=== PATIENT | female | born 2000 | race African-American/Black ===

== ENCOUNTER 2022-05-24 12:35 | Emergency (ER) | payer SELFPAY ==
[2022-05-24 13:17] VITALS: BP 100/53; PULSE 58; RESP 18; TEMP 35.9; O2SAT 99; BMI 33.1
--- NOTE | 2022-05-24 14:10 | ED.HA ---
HPI - Headache General Chief Complaint: Headache/Migraine Stated Complaint: Head pressure/nausea Time Seen by Provider: 05/24/22 13:23 History of Present Illness HPI Narrative: This 22-year-old female comes in reporting headache for the past 3 days. She has some nausea and dry heaves. She reports some sensitivity to light. She states that she does not typically get headaches. She feels this headache in the front part of her head and also in the occipital region. She does not report any neck pain or back pain. She has not had any fevers or other symptoms of infection. Related Data Home Medications Medication Instructions Recorded Confirmed No Known Home Medications 05/24/22 05/24/22 Allergies Allergy/AdvReac Type Severity Reaction Status Date / Time cat dander Allergy Mild Verified 05/24/22 13:25 pollen extracts Allergy Mild nose itchy Verified 05/24/22 13:25 Review of Systems Status of ROS: Reports: 10 or more systems reviewed and unremarkable except as noted in History and below Narrative: Constitutional: No fevers, no weight gain or loss. Eyes: No discharge. No vision changes. Light sensitivity. HENT: No congestion, no sore throat, no ear pain. Cardiovascular: No chest pain, no palpitations. Respiratory: No shortness of breath, no wheezes, no cough. Gastrointestinal: No abdominal pain, no diarrhea. Nausea with dry heaves. Genitourinary: No dysuria, no hematuria. Musculoskeletal: Normal range of motion. Skin: No rashes, no pruritis. Neurological: No dizziness, weakness, sensory change, speech change. Endo/Heme/Allergies: No bruising or bleeding. No polydipsia. Pysch: no suicidality, no anxiety, no insomnia. All other systems reviewed and are negative. PFSH PFSH Social History Smoking Status: Current some day smoker Do you use any of these nicotine containing products: None Second hand tobacco smoke exposure: No How often do you have a drink containing alcohol: monthly or less How many standard drinks containing alcohol do you have on a typical day: 1 or 2 How often do you have six or more drinks on one occasion: Never AUDIT-C Alcohol total score: 1 Non-prescribed substance use: marijuana (any form) service: No Exam Narrative: Exam Narrative: Constitutional: Well-developed, well-nourished, no acute distress. HEENT: Normocephalic, atraumatic. Neck: Normal range of motion. Nontender. Supple. Heart: Regular. No murmurs. Normal rate. Intact distal pulses. Lungs: Clear to auscultation. No chest discomfort. No wheezes, rhonchi, or rales. Abdomen: Normal bowel sounds. Nontender. No rebound tenderness. Genitalia: Deferred. Back: No midline tenderness. Normal range of motion. Extremities: Normal range of motion. No injury. Skin: Intact. No rash. Warm. No erythema or pallor. Neurologic: No altered sensation. No weakness. Alert and oriented. Psychiatric: No suicidality. No anxiety or depression. No insomnia. Nursing notes and vitals signs are reviewed. Const: Vital Signs, click to edit/add: Vital Signs - 24 hr 05/24/22 13:17 05/24/22 14:33 Temperature 96.7 F L Pulse Rate [Right Pulse Oximeter] 58 L 61 Respiratory Rate 18 18 Blood Pressure [Ri ght Upper Arm] 100/53 L 112/71 Pulse Oximetry 99 98 Oxygen Delivery Me thod Room Air Room Air Course Vital Signs Vital signs: Initial Vital Signs Temperature 96.7 F L 05/24/22 13:17 Temperature Source Temporal Artery Scan 05/24/22 13:17 Pulse Rate 58 L 05/24/22 13:17 Respiratory Rate 18 05/24/22 13:17 Blood Pressure 100/53 L 05/24/22 13:17 Blood Pressure Mean 68 05/24/22 13:17 Blood Pressure Position Sitting 05/24/22 13:17 Pulse Oximetry 99 05/24/22 13:17 Oxygen Delivery Method 05/24/22 13:17 Vital Signs Temperature 96.7 F L 05/24/22 13:17 Pulse Rate 58 L 05/24/22 13:17 Respiratory Rate 18 05/24/22 13:17 Blood Pressure 100/53 L 05/24/22 13:17 Pulse Oximetry 99 05/24/22 13:17 Oxygen Delivery Method 05/24/22 13:17 Temperature 96.7 F L 05/24/22 13:17 Pulse Rate 61 05/24/22 14:33 Respiratory Rate 18 05/24/22 14:33 Blood Pressure 112/71 05/24/22 14:33 Pulse Oximetry 98 05/24/22 14:33 Oxygen Delivery Method 12/21/22 14:33 MDM - Headache MDM Narrative Medical decision making narrative: This patient comes in with symptoms related to headache. She agreed to have an IV placed where she received Toradol 30 mg, Zofran 4 mg, and Benadryl 50 mg. After about 30 minutes I checked with her and she stated that her symptoms were worse. The nurse however noted that she was frequently on her phone and did not appear to be have 9 or 10/10 pain. I then offered to treat further with ketamine and she agreed to this plan. This was ordered and while it was being processed the patient got up to the bathroom and then left. She apparently removed her IV. Discharge Plan Discharge Clinical Impression: Headache Patient Disposition: Home, Self-Care Prescriptions: No Action No Known Home Medications Follow Up/Referrals: Provider,Not a Local [Primary Care Provider] - Stand Alone Forms: [employer] Info Instructions
[2022-05-24] MEDS: KETOROLAC 30 MG/ML inj IVP (14:27)
[2022-05-24] MEDS: ONDANSETRON 2 MG/ML inj 4 MG IVP (14:29)
[2022-05-24] MEDS: diphenhydrAMINE 50 MG/ML inj IVP (14:30)
[2022-05-24 14:33] VITALS: BP 112/71; PULSE 61; RESP 18; O2SAT 98
--- NOTE | 2022-05-24 15:24 | ED.NURSE ---
walked out of ed. dr patel informed. has blood on a tissue in the garbage, evidence that iv was self removed. has no phone listed. had a merchandise pickup/receiving associate truck waiting for her.
== END 2022-05-24 15:20 | disposition home or self-care (01) ==
PROVIDERS: Emergency Provider Emergency Medicine Emergency Medical Services
DX: R51.9 Headache, unspecified (principal)
CPT/HCPCS: 96374; 96375; 99283; 99284; J1200; J1885; J2405

== ENCOUNTER 2023-05-25 14:15 | Emergency (ER) | payer BC, SELFPAY ==
[2023-05-25 14:30] VITALS: BP 117/80; PULSE 56; RESP 20; TEMP 36.4; O2SAT 97; BMI 33.5
--- NOTE | 2023-05-25 15:04 | ED_ITS ---
HPI - Chest Pain General Chief Complaint: Chest Pain Stated Complaint: Chest pain, short of breath Time Seen by Provider: 05/25/23 14:45 History of Present Illness HPI narrative: This 23-year-old female comes in reporting severe chest pain that began last night after vaping. She does not report any cough. She arrives with normal vital signs but is very anxious. She denies having any nausea, vomiting, shortness of breath, diaphoresis, or exercise intolerance. She does state that the pain is worse when taking a deep breath and when laying down. Related Data Home Medications Medication Instructions Recorded Confirmed albuterol 90 mcg/actuation aerosol mcg inhalation 05/25/23 inhaler Previous Rx's Medication Instructions Recorded ketorolac 10 mg tablet 10 mg PO Q8H 5 days #15 tabs 05/25/23 Allergies Allergy/AdvReac Type Severity Reaction Status Date / Time cat dander Allergy Mild Verified 05/25/23 14:35 pollen extracts Allergy Mild nose itchy Verified 05/25/23 14:35 Review of Systems Status of ROS Reports: 10 or more systems reviewed and unremarkable except as noted in History and below Narrative Constitutional: No fevers, no weight gain or loss. Eyes: No discharge. No vision changes. HENT: No congestion, no sore throat, no ear pain. Cardiovascular: No palpitations. Respiratory: No shortness of breath, no wheezes, no cough. Gastrointestinal: No abdominal pain, no vomiting, no diarrhea. Genitourinary: No dysuria, no hematuria. Musculoskeletal: Normal range of motion. Skin: No rashes, no pruritis. Neurological: No dizziness, weakness, sensory change, speech change. Endo/Heme/Allergies: No bruising or bleeding. No polydipsia. Pysch: no suicidality. All other systems reviewed and are negative. PFSH PFS Social History Smoking Status: Current some day smoker Do you use any of these nicotine containing products: None Second hand tobacco smoke exposure: No How often do you have a drink containing alcohol: monthly or less How many standard drinks containing alcohol do you have on a typical day: 1 or 2 How often do you have six or more drinks on one occasion: Never AUDIT-C Alcohol total score: 1 Non-prescribed substance use: marijuana (any form) service: No Exam Narrative Exam Narrative: Constitutional: Well-developed, well-nourished, no acute distress. HEENT: Normocephalic, atraumatic. Neck: Normal range of motion. Nontender. Supple. Heart: Regular. No murmurs. Normal rate. Intact distal pulses. Lungs: Clear to auscultation. No wheezes, rhonchi, or rales. Chest: Diffuse pain across the anterior chest. Pain is distinctly reproducible when taking a deep breath and when laying back. Abdomen: Normal bowel sounds. Nontender. No rebound tenderness. Genitalia: Deferred. Back: No midline tenderness. Normal range of motion. Extremities: Normal range of motion. No injury. Skin: Intact. No rash. Warm. No erythema or pallor. Neurologic: No altered sensation. No weakness. Alert and oriented. Psychiatric: No suicidality. No anxiety or depression. No insomnia. Nursing notes and vitals signs are reviewed. Const Vital Signs, click to edit/add: Vital Signs - 24 hr 05/25/23 14:30 Temperature 97.5 F L Pulse Rate [Right Pulse Oximeter] 56 L Respiratory Rate 20 Blood Pressure [Left Upper Arm] 117/80 Pulse Oximetry 97 Oxygen Delivery Method Room Air Course Vital Signs Vital signs: Initial Vital Signs Temperature 97.5 F L 05/25/23 14:30 Temperature Source Temporal Artery Scan 05/25/23 14:30 Pulse Rate 56 L 05/25/23 14:30 Respiratory Rate 20 05/25/23 14:30 Blood Pressure 117/80 05/25/23 14:30 Blood Pressure Mean 92 05/25/23 14:30 Blood Pressure Position Sitting 05/25/23 14:30 Pulse Oximetry 97 05/25/23 14:30 Oxygen Delivery Method Room Air 05/25/23 14:30 Vital Signs Temperature 97.5 F L 05/25/23 14:30 Pulse Rate 56 L 05/25/23 14:30 Respiratory Rate 20 05/25/23 14:30 Blood Pressure 117/80 05/25/23 14:30 Pulse Oximetry 97 05/25/23 14:30 Oxygen Delivery Method Room Air 05/25/23 14:30 Temperature 97.5 F L 05/25/23 14:30 Pulse Rate 56 L 05/25/23 14:30 Respiratory Rate 20 05/25/23 14:30 Blood Pressure 117/80 05/25/23 14:30 Pulse Oximetry 97 05/25/23 14:30 Oxygen Delivery Method Room Air 05/25/23 14:30 Medications Administered Medications: Discontinued Medications Generic Name Dose Route Start Last Admin Trade Name Dickson PRN Reason Stop Dose Admin Ketorolac Tromethamine 30 mg 05/25/23 15:01 05/25/23 15:20 Ketorolac 30 Mg/Ml Inj IVP 05/25/23 15:02 30 mg ONCE ONE Administration Lorazepam 0.5 mg 05/25/23 15:01 05/25/23 15:20 Lorazepam 2 Mg/Ml Inj IV 05/25/23 15:02 0.5 mg ONCE ONE Administration MDM - Chest Pain MDM Narrative Medical decision making narrative: This patient comes in with chest pain and a fair amount of anxiety related to it. She reports pain in her central chest that is reproduced when palpating along the sternal border, when taking a deep breath, and when laying. An IV was established where she received Toradol 30 mg and Ativan 0.5 mg. This brought sufficient relief to her symptoms. EKG shows normal sinus rhythm without ST or T-wave abnormalities. Lab results also returned normal with normal troponin and D-dimer levels. This patient's pain is reproducible indicating chest wall pain. She did receive a prescription for Toradol and is encouraged to increase activity as tolerated. Lab Data Labs: Lab Results 05/25/23 05/25/23 Range/Units 15:00 15:02 WBC 9.67 (4.50-11.00) K/uL RBC 4.94 (4.00-5.20) m/uL Hgb 14.8 (12.0-16.0) gm/dL Hct 44.5 (33.0-51.0) % MCV 90 (80-100) fL MCH 30 (26-34) pg MCHC 33 (32-36) gm/dL RDW Coeff of Librado 12.5 (11.5-15.5) % Plt Count 332 (140-440) K/uL Neut % (Auto) 57.2 (42.0-72.0) % Lymph % (Auto) 34.0 (20-44) % [place] % (Auto) 7.0 (0.0-11.0) % Eos % (Auto) 0.9 (0.0-7.0) % Baso % (Auto) 0.3 (0.0-3.0) % Neut # (Auto) 5.52 (1.7-7.0) K/uL Lymph # (Auto) 3.29 H (0.90-2.90) K/uL [place] # (Auto) 0.70 (0.00-0.90) K/UL Eos # (Auto) 0.09 (0.00-0.50) K/uL Baso # (Auto) 0.03 (0.00-0.30) K/uL Abs Immat Gran (auto) 0.06 (0.00-0.30) K/uL Imm/Tot Granulo (auto) 0.6 % D-Dimer Quant (PE/DVT) 0.33 (0.00-0.50) ug/ml Sodium 140 (135-149) mmol/L Potassium 3.8 (3.6-5.1) mmol/L Chloride 105 (96-114) mmol/L Carbon Dioxide 24 (20-32) mmol/L Anion Gap 11 (7-15) mEq/L BUN 8 (5-24) mg/dL Creatinine 0.7 (0.5-1.5) mg/dL Estimated Creat Clear 108.86 Estimated GFR 125 ml/min Glucose 81 (60-115) mg/dL Calcium 9.9 (8.4-10.6) mg/dL POC Troponin I 0.00 L (0.01-0.04) ng/ml ECG Data Attestation: I personally reviewed and interpreted this ECG as follows: Interpretation: Sinus bradycardia, rate 51 beats per minute. There are no specific ST or T-wave abnormalities. Discharge Plan Discharge Clinical Impression: Acute chest wall pain Patient Disposition: Home, Self-Care Condition: Stable Additional Instructions: Take medication as needed and indicated. Increase activity as tolerated. Follow up with MD return if worsening. Prescriptions: New ketorolac 10 mg tablet 10 mg PO Q8H 5 Days Qty: 15 0RF No Action albuterol 90 mcg/actuation aerosol inhalation Follow Up/Referrals: Provider,Not a Local [Primary Care Provider] - Stand Alone Forms: [employer] Info Instructions
[2023-05-25] MEDS: LORazepam 2 MG/ML inj 0.5 MG IV (15:20)
[2023-05-25] MEDS: KETOROLAC 30 MG/ML inj IVP (15:20)
[2023-05-25 15:24] LABS: Basophils Absolute Auto 0.03 K/uL (0.00-0.30); Basophils Percent Auto 0.3 % (0.0-3.0); Eosinophils Absolute Auto 0.09 K/uL (0.00-0.50); Eosinophils Percent Auto 0.9 % (0.0-7.0); Hematocrit 44.5 % (33.0-51.0); Hemoglobin* 14.8 gm/dL (12.0-16.0); Immature Granulocytes Abs Auto 0.06 K/uL (0.00-0.30); Immature Granulocytes Pct Auto 0.6 %; Lymphocytes Absolute Auto 3.29 K/uL (0.90-2.90); Mean Corpuscular HGB Conc 33 gm/dL (32-36); Mean Corpuscular Hemoglobin 30 pg (26-34); Mean Corpuscular Volume 90 fL (80-100); Neutrophils Absolute Auto 5.52 K/uL (1.7-7.0); Neutrophils Percent Auto 57.2 % (42.0-72.0); Platelet Count* 332 K/uL (140-440); RDW Coefficient of Variation % 12.5 % (11.5-15.5); Red Blood Count 4.94 m/uL (4.00-5.20); White Blood Count* 9.67 K/uL (4.50-11.00)
[2023-05-25 15:38] LABS: Slide Review Reflex No
[2023-05-25 15:45] LABS: D Dimer Quantitative* 0.33 ug/ml (0.00-0.50)
[2023-05-25 15:46] LABS: Chloride* 105 mmol/L (96-114); Potassium* 3.8 mmol/L (3.6-5.1); Sodium* 140 mmol/L (135-149)
[2023-05-25 15:49] LABS: Anion Gap 11 mEq/L (7-15); Blood Urea Nitrogen* 8 mg/dL (5-24); Carbon Dioxide* 24 mmol/L (20-32); Creatinine* 0.7 mg/dL (0.5-1.5); Est. Creatinine Clearance* 108.86; Estimated Glomerular Filt Rate 125 ml/min
[2023-05-25 15:50] LABS: Calcium* 9.9 mg/dL (8.4-10.6); Glucose* 81 mg/dL (60-115)
[2023-05-25 16:38] VITALS: BP 112/68; PULSE 50; RESP 18; O2SAT 98
== END 2023-05-25 16:48 | disposition home or self-care (01) ==
PROVIDERS: Emergency Provider Emergency Medicine Emergency Medical Services
DX: R07.89 Other chest pain (principal)
CPT/HCPCS: 36415; 80048; 84484; 85025; 85379; 93005; 96374; 96375; 99284; J1885; J2060